=== PATIENT | female | born 1985 | race Asian ===

== ENCOUNTER 2017-01-07 00:05 | Inpatient (IN) | payer SELFPAY ==
[~2017-01-07] VITALS: Ht 164 cm; Wt 72.6 kg
[2017-01-07 00:22] VITALS: BP 125/94
[2017-01-07] MEDS ORDERED: METHYLERGONOVINE 0.2 MG/ML AMP IM PRN ×2 (00:40→13:15)
[2017-01-07] MEDS ORDERED: OXYTOCIN 10 UNITS/ML VIAL IM SCH (00:40)
[2017-01-07] MEDS ORDERED: CARBOPROST 250 MCG/ML AMP IM PRN (00:40)
[2017-01-07] MEDS ORDERED: PROMETHAZINE 25 MG/ML VIAL IVP PRN (00:40)
[2017-01-07] MEDS ORDERED: NALBUPHINE HYDROCHLORIDE 10 MG/ML VIAL IVP PRN (00:40)
[2017-01-07] MEDS ORDERED: OXYTOCIN 20 UNITS/LR PREMIX 1,000 ML IV SCH (01:00)
[2017-01-07 01:02] LABS: LYMPHOCYTES # (AUTO) 1.9 K/uL (2.5-16.5); MEAN CORPUSCULAR HEMOGLOBIN 31 pg (27-31); NEUTROPHILS # (AUTO) 9.7 K/uL (1.8-7.7); RED CELL DISTRIBUTION WIDTH 13.3 % (11.6-13.7)
[2017-01-07 01:07] LABS: BASOPHILS # (AUTO) 0.1 K/uL (0.00-0.22); EOSINOPHILS # (AUTO) 0.2 K/uL (0-0.4); EOSINOPHILS % (AUTO) 1.2 % (0.0-4.0); HEMATOCRIT 39.6 % (36-48); HEMOGLOBIN 13.3 g/dL (12.0-16.0); LYMPHOCYTES % (AUTO) 14.5 % (20.5-51.1); MEAN CORPUSCULAR HGB CONC 34 g/dL (33-37); MEAN CORPUSCULAR VOLUME 93 fL (80-94); MONOCYTES % (AUTO) 7.5 % (1.7-9.3); NEUTROPHILS % (AUTO) 75.8 % (42.2-75.2); PLATELET COUNT (AUTO) 220 K/uL (140-450); RED BLOOD CELL COUNT(AUTO) 4.26 MIL/uL (4.20-5.40); WHITE BLOOD COUNT (AUTO) 12.9 K/uL (4.8-10.8)
[2017-01-07] MEDS: LACTATED RINGERS 1,000 ML IV SCH ×3 (01:13→08:39)
[2017-01-07 01:52] LABS: APPEARANCE,URINE SL CLOUDY (CLEAR); BILIRUBIN,URINE NEGATIVE (NEGATIVE); BLOOD, URINE 1+ (NEGATIVE); COLOR,URINE YELLOW (YELLOW); LEUKOCYTE ESTERASE ,URINE NEGATIVE (NEGATIVE); NITRITE, URINE NEGATIVE (NEGATIVE); PH,URINE 5.5 (5.0-9.0); PROTEIN,URINE 1+ (NEGATIVE); UGLUCOSE NEGATIVE (NEGATIVE); UROBILINOGEN,URINE 0.2 EU/dL (0.2 - 1)
[2017-01-07] MEDS ORDERED: OXYTOCIN 20 UNITS/LR PREMIX 1,000 ML IV ONE (02:08)
[2017-01-07] MEDS ORDERED: PREN-546 PO (02:17)
[2017-01-07] MEDS ORDERED: EUTHYROX PO (02:17)
[2017-01-07 02:38] LABS: BACTERIA,URINE FEW /HPF (None Seen); WBC,URINE 0-5 (RARE) /HPF (0-5)
[2017-01-07] MEDS: CLINDAMYCIN 900 MG in DEXTROSE 5% 100 ML IV SCH ×3 (03:08→19:08)
[2017-01-07] MEDS ORDERED: CLINDAMYCIN 900 MG/6 ML VIAL IV ONE (03:09)
[2017-01-07] MEDS ORDERED: hydrALAZINE 20 MG/ML VIAL IM SCH (05:05)
[2017-01-07] MEDS ORDERED: hydrALAZINE 20 MG/ML VIAL ONE (05:14)
[2017-01-07] MEDS ORDERED: BUPIVACAINE 0.125%/NS PREMIX 250 ML ONE (05:31)
[2017-01-07 06:12] VITALS: BP 113/78
[2017-01-07 06:30] LABS: ALBUMIN 2.5 g/dL (3.4-5.0); CALCIUM 8.3 mg/dL (8.5-10.1); CARBON DIOXIDE 17.8 mmol/L (21-32); CREATININE 0.7 mg/dL (0.6-1.3); MAGNESIUM 1.5 mg/dL (1.8-2.4); POTASSIUM 3.8 mmol/L (3.5-5.1); TOTAL BILIRUBIN 0.4 mg/dL (0.0-1.0)
[2017-01-07 07:28] LABS: INR 0.9 (0.8-1.2); PROTHROMBIN TIME 9.4 secs (10.8-13.4)
[2017-01-07 07:33] LABS: PARTIAL THROMBOPLASTIN TIME 28.5 secs (22-35.6)
--- NOTE | 2017-01-07 09:53 | NUR ---
PATIENT HAS BEEN SCREENED AND CATEGORIZED LOW NUTRITION RISK. PATIENT WILL BE SEEN WITHIN 7 DAYS OF ADMISSION. 01/13/[address]
[2017-01-07] MEDS ORDERED: OXYTOCIN 10 UNITS/ML VIAL ONE (12:21)
[2017-01-07] MEDS ORDERED: WITCH HAZEL 40 PAD PACKAGE TP PRN (13:15)
[2017-01-07] MEDS ORDERED: BENZOCAINE/MENTHOL 20%-0.5% 60 GM CAN TP PRN (13:15)
[2017-01-07] MEDS ORDERED: OXYTOCIN 10 UNITS/ML VIAL IM PRN (13:15)
[2017-01-07] MEDS ORDERED: oxyCODONE/APAP 5/325 MG 1 TAB TAB PO PRN (13:15)
[2017-01-07] MEDS ORDERED: HYDROcodone/APAP 5/325 MG 1 TAB TAB PO PRN (13:15)
[2017-01-07] MEDS ORDERED: IBUPROFEN 800 MG TAB PO PRN (13:15)
[2017-01-07] MEDS ORDERED: oxyCODONE/APAP 5/325 MG 1 TAB TAB ONE (13:28)
[2017-01-07] MEDS: LABETALOL 100 MG TAB PO SCH (14:12)
[2017-01-07] MEDS ORDERED: LABETALOL 100 MG TAB ONE (14:15)
[2017-01-07] MEDS ORDERED: DOCUSATE SOD/SENNA 50/8.6 MG 1 TAB PO SCH (21:00)
[2017-01-08] MEDS: LABETALOL 100 MG TAB PO SCH (01:58)
[2017-01-08] MEDS: CLINDAMYCIN 900 MG in DEXTROSE 5% 100 ML IV SCH (03:01)
[2017-01-08 05:56] LABS: HEMATOCRIT 31.8 % (36-48); HEMOGLOBIN 10.5 g/dL (12.0-16.0)
[2017-01-08] MEDS ORDERED: LEVOTHYROXINE 0.05 MG TAB PO SCH (06:30)
== END 2017-01-08 15:45 | disposition home or self-care (01) | DRG 775 ==
LOC: MLD 00:05 → MFCC 15:30
PROVIDERS: ADMIT Obstetrics & Gynecology; ATTEND Obstetrics & Gynecology
PROC: 10E0XZZ Delivery of Products of Conception, External Approach (ICD-10-PCS; principal; 2017-01-07)
PROC: 10907ZC Drainage of Amniotic Fluid, Therapeutic from Products of Conception, Via Natural or Artificial Opening (ICD-10-PCS; 2017-01-07)
PROC: 0W8NXZZ Division of Female Perineum, External Approach (ICD-10-PCS; 2017-01-07)
PROC: 00HU33Z Insertion of Infusion Device into Spinal Canal, Percutaneous Approach (ICD-10-PCS; 2017-01-07)
PROC: 3E0R3CZ (ICD-10-PCS; 2017-01-07)
PROC: 3E0234Z Introduction of Serum, Toxoid and Vaccine into Muscle, Percutaneous Approach (ICD-10-PCS; 2017-01-08)
DX: O99.284 Endocrine, nutritional and metabolic diseases complicating childbirth (principal); O89.4 Spinal and epidural anesthesia-induced headache during the puerperium; E89.0 Postprocedural hypothyroidism; Z37.0 Single live birth; Z3A.42 42 weeks gestation of pregnancy; Z88.0 Allergy status to penicillin; Z23 Encounter for immunization
CPT/HCPCS: 36415; 80053; 81001; 83735; 85018; 85025; 85384; 85610; 85730; 86592; 86886; 86900; 86901; 90715; J0360; J2590; J3490; J7060; J7120